=== PATIENT | male | born 1985 | race Caucasian/White ===

== ENCOUNTER 2016-11-02 04:53 | Emergency (ER) | payer SELFPAY ==
[~2016-11-02] VITALS: Ht 177.8 cm; Wt 97.5 kg
[~2016-11-02 04:53] MED LIST: ZITHROMAX TRI-500 M1 PO
--- NOTE | 2016-11-02 05:38 | Emergency Room Report ---
History of Present Illness Time Seen by MD Pritchard Presenting Problem in Triage Pt arrived:Walked Presenting Problem:PT STATES HE HAD PAIN IN HIS LEFT ARM WHEN HE WOKE UP AT 0245 THIS AM. PT STATES HE IS NO LONGER HAVING PAIN. 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 N Clinical Suspician of Infection? N Mental Status: 1 - Regular (Normal Baseline) Sepsis Risk:Low Sepsis Risk Have you (or family members/close friends) recently traveled outside the [place]? N If Yes, where/when: Have you had exposure to infectious disease within the past month? N TB? Other? Specify: Source patient, RN notes reviewed, family, old records Exam Limitations no limitations Comment acute onset this am of lt upper ext pain along volar forrearm and ulnar n from shoulder but resolved now- no chest pain or known ht disease Cardiac Chest Pain Chest pain indicative of cardiac No Timing/Duration this evening Severity moderate ALLERGIES Coded Allergies: cefprozil (From CEFZIL) (I-RASH 11/02/16) Home Medications Reported Medications No Known Home Medications History Medical History General CAD? No Angina: No CT: No Hypertension? No Hyperlipidemia? No CHF? No DVT? No PE? No COPD? No Asthma? No Anemia? No GERD? No Gastric ulcers? No GI Bleed? No Hernia? No Thyroid Problems? No Hypothyroidism? No CVA? No Seizures? No Diabetes? No Renal Insuffiency? No End Stage Renal Disease? No UTI? No Stones? No BPH? No GB Disease: No Nephritic Syndrome? No Asplenia? No Hepatitis? No Sickle Cell Disease? No Arthritis? No Migraines? No Cataracts? No Glaucoma? No MRSA? No HIV? No TB? No Anxiety? No Depression? No Cancer? No More? No Immunization Hx DT/Tetanus 1-4 Years Ago Surgical Hx Previous Surgery?Y APPENDECTOMY Social History Smoking Hx Smoker: Never Smoker Tobacco: No Type N/A Are you/the child exposed to second-hand smoke: No Alcohol Alcohol: No Drugs none Review of Systems All Other Systems Reviewed and Negative Constitutional denies fever Eyes denies drainage ENT denies: ear pain, epistaxis, throat pain. Respiratory denies cough, denies shortness of breath, denies wheezing Cardiovascular denies chest pain, denies syncope Gastrointestinal denies abdominal pain, denies diarrhea, denies vomiting Genitourinary denies: dysuria, frequency, hesitancy, hematuria. Musculoskeletal denies back pain, denies joint pain, denies joint swelling, denies neck pain Skin denies rash Psychiatric/Neurological see HPI, denies seizure, denies weakness, other Physical Exam Vital Signs Vital Signs Date Time Temp Pulse Resp B/P Pulse O2 O2 Flow FiO2 Ox Delivery Rate 11/02 0602 98.5 88 20 139/86 99 11/02 0458 98.1 79 18 163/116 98 - WBC >12,000 or <4,000 or 10% bands? 2 or more SIRS Criteria Met? B/P:139/86 MAP:131 Creatinine >2.0? UA output<0.5ml/kg/hr for 2 hrs? Platelet count >100,000? Lactate >2.0mmol/1? INR >1.2 or PTT > than 60 sec? Evidence of Organ Dysfunction? Provider documented clinical suspician of infection? N Sepsis Criteria Count: 0 Sepsis Risk: Low Sepsis Risk General Appearance no apparent distress Eye Exam - bilateral eye PERRL, bilateral eye EOMI Ear, Nose, Throat normal ENT inspection Neck supple Respiratory Status No: respiratory distress. Lung Sounds bilateral: lungs clear. 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 No Results/Orders Laboratory Tests 11/02/16 0535: Sodium 140, Potassium 4.0, Chloride 104, Carbon Dioxide 28, BUN 15, Creatinine 1.2, Estimated Creat Clear 124, Estimated GFR (MDRD) 71, Glucose 99, Calcium 9.0 , Total Bilirubin 0.3, AST 42 H, ALT 90 H, Alkaline Phosphatase 46, Creatine Kinase 250, CK-MB (CK-2) Rel Index 0.7, CK and CKMB Interp 1.8, Troponin I < 0.02, Total Protein 7.7, Albumin 3.9, Globulin 3.8 H, Albumin/Globulin Ratio 1.0 L, WBC 7.9, RBC 5.03, Hgb 15.2, Hct 44.4, MCV 88.2, RDW 13.7, Plt Count 235 , MPV 8.5, Gran % 56.1, Gran # 4.5, Lymphocytes % 34.0, Monocytes % 7.6, Eosinophils % 1.2, Basophils % 1.1, Lymphocytes # 2.7, Monocytes # 0.6, Eosinophils # 0.1, Basophils # 0.1, PUBS MCHC 34.2, MCH 30.1 Orders Procedure Date/time Status ELECTROCARDIOGRAM REQUEST 11/02 502 Active CHEST(2 VIEWS-NOT PORTABLE) 11/02 050 Active CBC WITH AUTO DIFF 11/02 050 Complete CARDIAC ENZYMES 11/02 502 Active CHEM 12 PROFILE 11/02 050 Active 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 of ischemic chgs XRAY/CT/US XRAY/CT/US XRAY chest XR interpretation by reviewed by me Xray Results normal/NAD Departure Departure Time of Disposition 0651 Disposition DC Home or Self Care(routine) Clinical Impression Primary Impression: Upper extremity pain Qualifiers: Laterality: left Qualified Code: M79.602 - Pain in left arm Condition STABLE Patient Instructions DI for Arm Pain Additional Instructions nsaif and see pcp for more eval Discharge Counseling Counseled pt/family regarding diagnosis, test results, medications/RX, follow up needs Prescriptions Current Visit Scripts No Known Home Medications ED Critical Care Critical Care No at 0708
--- NOTE | 2016-11-02 05:38 | Emergency Room Report ---
History of Present Illness Time Seen by MD rPitchard Presenting Problem in Triage Pt arrived:Walked Presenting Problem:PT STATES HE HAD PAIN IN HIS LEFT ARM WHEN HE WOKE UP AT 0245 THIS AM. PT STATES HE IS NO LONGER HAVING PAIN. 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 N Clinical Suspician of Infection? N Mental Status: 1 - Regular (Normal Baseline) Sepsis Risk:Low Sepsis Risk Have you (or family members/close friends) recently traveled outside the [place]? N If Yes, where/when: Have you had exposure to infectious disease within the past month? N TB? Other? Specify: Source patient, RN notes reviewed, family, old records Exam Limitations no limitations Comment acute onset this am of lt upper ext pain along volar forrearm and ulnar n from shoulder but resolved now- no chest pain or known ht disease Cardiac Chest Pain Chest pain indicative of cardiac No Timing/Duration this evening Severity moderate ALLERGIES Coded Allergies: cefprozil (From CEFZIL) (I-RASH 11/02/16) Home Medications Reported Medications No Known Home Medications History Medical History General CAD? No Angina: No DE: No Hypertension? No Hyperlipidemia? No CHF? No DVT? No PE? No COPD? No Asthma? No Anemia? No GERD? No Gastric ulcers? No GI Bleed? No Hernia? No Thyroid Problems? No Hypothyroidism? No CVA? No Seizures? No Diabetes? No Renal Insuffiency? No End Stage Renal Disease? No UTI? No Stones? No BPH? No GB Disease: No Nephritic Syndrome? No Asplenia? No Hepatitis? No Sickle Cell Disease? No Arthritis? No Migraines? No Cataracts? No Glaucoma? No MRSA? No HIV? No TB? No Anxiety? No Depression? No Cancer? No More? No Immunization Hx DT/Tetanus 1-4 Years Ago Surgical Hx Previous Surgery?Y APPENDECTOMY Social History Smoking Hx Smoker: Never Smoker Tobacco: No Type N/A Are you/the child exposed to second-hand smoke: No Alcohol Alcohol: No Drugs none Review of Systems All Other Systems Reviewed and Negative Constitutional denies fever Eyes denies drainage ENT denies: ear pain, epistaxis, throat pain. Respiratory denies cough, denies shortness of breath, denies wheezing Cardiovascular denies chest pain, denies syncope Gastrointestinal denies abdominal pain, denies diarrhea, denies vomiting Genitourinary denies: dysuria, frequency, hesitancy, hematuria. Musculoskeletal denies back pain, denies joint pain, denies joint swelling, denies neck pain Skin denies rash Psychiatric/Neurological see HPI, denies seizure, denies weakness, other Physical Exam Vital Signs Vital Signs Date Time Temp Pulse Resp B/P Pulse O2 O2 Flow FiO2 Ox Delivery Rate 11/02 0602 98.5 88 20 139/86 99 11/02 0458 98.1 79 18 163/116 98 - WBC >12,000 or <4,000 or 10% bands? 2 or more SIRS Criteria Met? B/P:139/86 MAP:131 Creatinine >2.0? UA output<0.5ml/kg/hr for 2 hrs? Platelet count >100,000? Lactate >2.0mmol/1? INR >1.2 or PTT > than 60 sec? Evidence of Organ Dysfunction? Provider documented clinical suspician of infection? N Sepsis Criteria Count: 0 Sepsis Risk: Low Sepsis Risk General Appearance no apparent distress Eye Exam - bilateral eye PERRL, bilateral eye EOMI Ear, Nose, Throat normal ENT inspection Neck supple Respiratory Status No: respiratory distress. Lung Sounds bilateral: lungs clear. 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 No Results/Orders Laboratory Tests 11/02/16 0535: Sodium 140, Potassium 4.0, Chloride 104, Carbon Dioxide 28, BUN 15, Creatinine 1.2, Estimated Creat Clear 124, Estimated GFR (MDRD) 71, Glucose 99, Calcium 9.0 , Total Bilirubin 0.3, AST 42 H, ALT 90 H, Alkaline Phosphatase 46, Creatine Kinase 250, CK-MB (CK-2) Rel Index 0.7, CK and CKMB Interp 1.8, Troponin I < 0.02, Total Protein 7.7, Albumin 3.9, Globulin 3.8 H, Albumin/Globulin Ratio 1.0 L, WBC 7.9, RBC 5.03, Hgb 15.2, Hct 44.4, MCV 88.2, RDW 13.7, Plt Count 235 , MPV 8.5, Gran % 56.1, Gran # 4.5, Lymphocytes % 34.0, Monocytes % 7.6, Eosinophils % 1.2, Basophils % 1.1, Lymphocytes # 2.7, Monocytes # 0.6, Eosinophils # 0.1, Basophils # 0.1, PUBS MCHC 34.2, MCH 30.1 Orders Procedure Date/time Status ELECTROCARDIOGRAM REQUEST 11/02 502 Active CHEST(2 VIEWS-NOT PORTABLE) 11/02 050 Active CBC WITH AUTO DIFF 11/02 050 Complete CARDIAC ENZYMES 11/02 502 Active CHEM 12 PROFILE 11/02 050 Active CM/EKG 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 of ischemic chgs XRAY/CT/US XRAY/CT/US XRAY chest XR interpretation by reviewed by me Xray Results normal/NAD Departure Departure Time of Disposition 0651 Disposition DC Home or Self Care(routine) Clinical Impression Primary Impression: Upper extremity pain Qualifiers: Laterality: left Qualified Code: M79.602 - Pain in left arm Condition STABLE Patient Instructions DI for Arm Pain Additional Instructions nsaif and see pcp for more eval Discharge Counseling Counseled pt/family regarding diagnosis, test results, medications/RX, follow up needs Prescriptions Current Visit Scripts No Known Home Medications ED Critical Care Critical Care No at 0708
[2016-11-02 06:10] LABS: HEMOGLOBIN 15.2 g/dL (14.1-18.0); LYMPH # 2.7 K/mm3 (0.7-4.5)
[2016-11-02 06:55] LABS: GFR (ESTIMATED) 71 ML/MIN (>60)
[2016-11-02 07:06] LABS: BUN 15 mg/dL (7-18)
[2016-11-02 07:11] VITALS: BP 135/86
--- NOTE | 2016-11-02 09:14 | RADIOLOGY REPORT PS360 ---
CHEST(2 VIEWS-NOT PORTABLE) INDICATION: Left arm pain COMPARISON: None FINDINGS: The lung child are well expanded and appear clear of infiltrate. The cardiomediastinal silhouette and vascularity are normal. The costophrenic angles are clear. The bony thorax is normal. IMPRESSION: Normal chest.
== END 2016-11-02 07:12 | disposition home or self-care (01) ==
LOC: ER 04:53
PROVIDERS: Emergency Medicine
DX: M79.602 Pain in left arm (principal)